=== PATIENT | male | born 1960 | race Caucasian/White ===

== ENCOUNTER 2020-10-21 17:27 | Inpatient (IN) | payer OTHER, SELFPAY ==
[2020-10-21] VITALS (10 sets, daily range): BP systolic 102–181; BP diastolic 59–78; PULSE 95–107; RESP 12–34; TEMP 37.4–39.4; O2SAT 95–100; BMI 44.3
--- NOTE | ~2020-10-21 | XR_ITS ---
XR chest 1V portable DATE: 10/21/2020 18:06 INDICATION: Fever, shortness of breath TECHNIQUE: Portable AP chest on 10/21/2020 at 1809 hours COMPARISON: 03/08/2013 portable AP chest FINDINGS: There is mild patchy infiltrate in the right mid and lower lung zones. The remaining lung f ields appear clear. No pleural effusion or pulmonary vascular congestion or pneumothorax. Heart size appears normal. Aortic arch calcification. Degenerative spurring of the thoracic spine. IMPRESSION: Mild patchy infiltrate in the right mid and lower lung zones Reviewed, dictated and finalized at location A.
--- NOTE | ~2020-10-21 | US_ITS ---
US venous doppler [facility] DATE: 10/21/2020 18:24 INDICATION: Left leg swelling for months TECHNIQUE: Real-time and color flow imaging and Doppler analysis of the veins of the left lower extre mity COMPARISON: None FINDINGS: Left greater saphenous vein is patent. There is spontaneous and phasic flow and normal augm entation and color flow signal and normal compression of the common femoral, femoral, popliteal and p osterior tibial veins. The peroneal veins are not visualized, likely due to body habitus. IMPRESSION: No evidence of deep venous thrombosis of left lower extremity Reviewed, dictated and finalized at Location [facility]. Reviewed, dictated and finalized at location A.
[2020-10-21 18:07] LABS: Basophils Percent Auto 0.3 % (0.2-1.2); Hematocrit 39.4 % (42.0-52.0); Hemoglobin 13.7 g/dL (14.0-18.0); Immature Granulocyte Absolute 0.05 K/mm3 (0.00-0.031); Immature Granulocyte Percent A 0.5 % (0-0.5); Lymphocytes Absolute Auto 0.65 K/mm3 (0.9-3.2); Lymphocytes Percent Auto 6.2 % (18.3-44.2); Mean Corpuscular HGB Conc 34.8 g/dl (32-36); Mean Corpuscular Hemoglobin 31.9 pg (26-34); Mean Corpuscular Volume 91.8 fl (80-100); Mean Platelet Volume 9.6 fl (7.4-10.4); Monocytes Absolute Auto 0.7 K/mm3 (0.1-0.6); Monocytes Percent Auto 6.2 % (2.6-8.5); Neutrophils Absolute Auto 9.1 K/mm3 (1.3-6.7); Neutrophils Percent Auto 86.8 % (45.5-73.1); Platelet Count Result 202 k/mm3 (150-375); Red Blood Count 4.29 M/mm3 (4.6-6.20); Red Cell Distribution Width 14.1 % (11.5-14.5); White Blood Count 10.5 K/mm3 (4.5-10.0)
[2020-10-21 18:16] LABS: Lactic Acid Reflex 1.5 mmol/L (0.7-2.1)
[2020-10-21 18:17] LABS: Alanine Aminotransferase 22 U/L (4-50); Alkaline Phosphatase 50 U/L (38-126); Anion Gap 2 mmol/L (8-16); Aspartate Amino Transferase 36 U/L (17-59); Bilirubin,Total 0.9 mg/dL (0.2-1.3); Blood Urea Nitrogen 11 mg/dL (9-20); Calcium 8.1 mg/dL (8.4-10.2); Carbon Dioxide 31 mmol/L (22-30); Chloride 103 mmol/L (98-107); Estimated CRCL calculation 136 ml/min; Estimated Glomerular Filt Rate > 60; Glucose 181 mg/dL (75-110); Potassium 3.3 mmol/L (3.4-5.0); Sodium 136 mmol/L (137-145)
[2020-10-21 18:19] LABS: D Dimer 0.55 ug/mL (<0.48)
[2020-10-21] MEDS: LACTATED RINGERS 1,000 ML 999 ML IV CONT (18:40)
--- NOTE | 2020-10-21 19:13 | ED.GENADULT ---
HPI - General Adult General Chief complaint: Unspecified Stated complaint: body aches Time Seen by Provider: 10/21/20 17:41 Source: patient and family Mode of arrival: ambulatory Limitations: no limitations History of Present Illness HPI narrative: 60-year-old male History of diabetes, hypertension He has some chronic edema and chronic stasis changes in both lower legs Left leg has recently been worse, with worsening pain, and some weeping from the area for a couple of weeks For the last 2 days it is been much worse and today he has been having fevers No other obvious source, he occasionally has a little bit of a scratchy throat, occasionally coughs a little bit, but none of this is new or different than usual Related Data Home Medications Medication Instructions Recorded Confirmed amlodipine-benazepril cap 10/21/20 blood sugar diagnostic [Accu-Chek 10/21/20 10/21/20 Guide test strips] finasteride mg 10/21/20 fluticasone propionate INTRANASAL 10/21/20 hydrochlorothiazide 10/21/20 10/21/20 insulin detemir U-100 [Levemir unit SUBCUT 10/21/20 FlexTouch U-100 Insuln] insulin lispro [Humalog KwikPen unit SUBCUT 10/21/20 Insulin] metformin mg 10/21/20 metoprolol succinate PO 10/21/20 pen needle, diabetic [BD Lorenza 2nd 10/21/20 10/21/20 Gen Pen Needle] rosuvastatin mg 10/21/20 Allergies Allergy/AdvReac Type Severity Reaction Status Date / Time Penicillins Allergy Unknown Unknown Verified 10/21/20 18:41 Review of Systems Review of Systems: All systems reviewed & are unremarkable except as noted in HPI and below Constitutional: Constitutional: Reports no additional constitutional complaints, Reports body ache(s), Reports chills, Reports fatigue, Reports fever(s) and Denies headache(s) Eyes: Eyes: Reports no additional eye complaints and Denies change in vision ENT: Denies headache(s) and Denies sore throat Cardiovascular: Cardiovascular: Denies chest pain and Denies dyspnea Respiratory: Respiratory: Reports cough and Denies dyspnea Gastrointestinal: Gastrointestinal: Denies abdominal pain, Denies diarrhea and Denies vomiting Genitourinary: Genitourinary: Denies dysuria and Denies urinary frequency Musculoskeletal: Musculoskeletal: Denies deformity, Reports arthralgias, Reports joint swelling, Denies numbness and Reports stiffness Integumentary/Breasts: Skin/Breast: Denies rash and Denies wounds Neurologic: Denies headache(s), Denies focal weakness and Denies numbness Psychiatric: Psychiatric: Reports no additional psychiatric complaints Endocrine: Endocrine: Reports no additional endocrine complaints Hematologic/Lymphatic: Hematologic/Lymphatic: Reports no additional hematologic/lymphatic complaints Allergic/Immunologic: Allergic/Immunologic: Reports no additional allergic/immunologic complaints [facility] Family History Family History (Updated 06/15/15 @ 08:05 by DOCTOR UNKNOWN) Other Cerebrovascular accident Depression Diabetes mellitus Family history of arthritis Family history of blood dyscrasia Family history of cardiovascular disease Family history of congestive heart failure Family history of coronary artery disease Family history of lung disease Family history of malignant melanoma Family history of migraine headaches Family history of obesity Family history of thyroid disease Hypertension Social History Social History Smoking status: Never smoker Alcohol intake: current Exam Const: General: cooperative, no acute distress and alert Nutritional Appearance: overweight HENMT: Head: normal to inspection, normocephalic and atraumatic Ears: external ears normal General nose exam: no epistaxis Eyes: Conjunctivae: conjunctivae normal EOM: EOMs intact bilaterally Neck: Neck: normal visual inspection, supple and no JVD Resp: Effort & Inspection: normal respiratory effort and not labored Auscultation: clear to auscultation bilaterally, n
--- NOTE | 2020-10-21 20:15 | PC.NURSE ---
Pt resting on cart at this time with no complaints or concerns at this time. Pt aware of poc and is requesting more water at this time. Vanco is now infusing and pt noted to be febrile with temp of 102.9 will notify EDMD for orders. Pt vitals are stable. Call button and personal items within reach. Pt advised to press call button for assistance.
[2020-10-21] MEDS: ACETAMINOPHEN 325 MG TABLET 650 MG PO (20:23)
[2020-10-21 20:38] LABS: Add Urine Microscopic? YES; Appearance Urine Clear (Clear); Bilirubin Urine Negative (Negative); Blood Urine 1+ (Negative); Color Urine Yellow (Yellow); Glucose Urine UA Negative (Negative); Ketones Urine 1+ mg/dL (Negative); Leukocyte Esterase Ur Negative LEU/UL (Negative); Nitrate Urine Negative (Negative); Protein Urine 3+ mg/dL (Negative); Specific Grav Ur 1.016 (1.001-1.035); WBC Urine 0-3 /hpf
--- NOTE | 2020-10-21 21:04 | PC.NURSE ---
presented to bedside and provided auto service writer with pt med hx. States pt uses cpap at night and brought in machine. Also states that she does not know pt med list and does not have one on her person; advises that she will call in later with list. Pt resting on cart. Remains febrile with temp 102.8. No complaints or concerns voiced. Advised to press call button for assistance.
--- NOTE | 2020-10-21 21:05 | PC.NURSE ---
Report called to receiving nurse, Eliz, who states room is not clean at this time and will call when bed is ready. Will notify ED charge.
[2020-10-21] MEDS: LACTATED RINGERS 1,000 ML 125 ML IV CONT (21:24)
--- NOTE | 2020-10-21 21:30 | PC.NURSE ---
Called to verify if room 319 has been cleaned and was advised that room was still being cleaned.
--- NOTE | 2020-10-21 22:23 | ADMGEN ---
This patient, Jared Red, was admitted to 3 [facility] Surg Room 319-01. Patient/family oriented to hospital policies and general routines including ID bracelet, bed and alarms, visiting hours, pain management, procedures, bathroom and other care routines, personal items, smoking policy, room service/diet, and visiting hours. Information on how to activate the Rapid Response Team has been discussed. Patient/Family are encouraged to report perceived risks to care and to ask questions if they do not understand what they are told or what they should do.
[2020-10-22] VITALS (7 sets, daily range): BP systolic 137–162; BP diastolic 50–88; PULSE 55–92; RESP 20; TEMP 36.8–38.2; O2SAT 95–100
[2020-10-22] MEDS: ACETAMINOPHEN 325 MG TABLET 650 MG PO ×2 (00:13→05:36)
[2020-10-22] MEDS: POTASSIUM CHLORIDE 20 MEQ TABLET 40 MEQ PO (02:19)
[2020-10-22] MEDS: CALCIUM CARBONATE (TUMS) 500 MG (200 MG ELEMENTAL) PO (04:14)
--- NOTE | 2020-10-22 05:17 | PM.IMHP ---
H&P: HPI History of Present Illness Date/Time: 10/22/20 03:00 Chief Complaint: Body aches, draining wound of left leg Narrative: 60-year-old male with past medical history of hypertension, type 2 diabetes mellitus well controlled, chronic venous stasis dermatitis and prior cellulitis who presented to the ER body aches, fever and draining wound from his left lower extremity. The patient reported the on the evening of the he began having fevers with a T-max of 102.9?. He took some Tylenol without much relief in his symptoms. He had generalized body aches age describes a 8/10 in intensity. He reports that it was the worst aching pain he has ever had in his life. He has reported some mild increase in pain in his left lower extremity. He has not noticed much swelling in his lower extremity but he states that his complains that his left leg is been more swollen. He has had a small amount of drainage from the lateral portion of his left leg. He has had prior episodes of cellulitis due to his chronic venous stasis dermatitis. He does have diabetes but his diabetes is well controlled with his hemoglobin A1cs being around 5.9% for the last 2 or 3 years. He has had decreased appetite since of with some mild nausea. 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 Patient denies any diarrhea or changes in his bowel habits. He has not had any vomiting. He reports frequent headaches with headaches between 3 and 5 days of the week. He reports that his headaches are usually in the back of his neck and in the occiput. He does have obstructive sleep apnea and is compliant with his CPAP. He reports that if he does not wear his CPAP he can only sleep for 20 minutes intervals without waking up. He denies any dysuria, hematuria, or changes in urinary frequency. He reports a chronic mild nonproductive cough and nasal congestion associated with his chronic allergic rhinitis. He has received his 1st dose of COVID-19 vaccine and is due for a 2nd dose next Sunday. Review of Systems Review of Systems: Narrative: 12 systems were reviewed with pertinent positives and negatives per HPI. Except as documented in the HPI, all other systems were reviewed and are negative. [facility] Past Medical History Medical History (Updated 10/22/20 @ 06:59 by Casie Jacobs DO) Allergic rhinitis BPH (benign prostatic hyperplasia) Chronic venous stasis dermatitis of both lower extremities Essential hypertension Hyperlipidemia Insulin dependent diabetes mellitus Multinodular goiter Obstructive sleep apnea on CPAP Surgical History Surgical History (Updated 10/22/20 @ 06:43 by Casie Jacobs DO) History of total right knee replacement (~02/2013) Family History Family History (Updated 10/22/20 @ 06:48 by Casie Jacobs DO) Father , At age 65 Cerebrovascular accident Mother , At age 81 CHF (congestive heart failure) Other Depression Diabetes mellitus Family history of arthritis Family history of blood dyscrasia Family history of cardiovascular disease Family history of coronary artery disease Family history of lung disease Family history of malignant melanoma Family history of migraine headaches Family history of obesity Family history of thyroid disease Hypertension Social History Social History (Updated 10/22/20 @ 06:47 by Casie Jacobs DO) Social History: The patient lives in [place] with his of 36 years. They have 2 daughters age 41 and 36. He works full-time as a cook for [employer]. He briefly smoked for 1 year while he was in college. He usually drinks about once a month but when he does drink he will drink heavily on that day. He denies any illicit substance use. Primary care physician: Dr. Aidan Calix Code status: Full code Surrogate decision maker: Wilman
[2020-10-22] MEDS: LACTATED RINGERS 1,000 ML 125 ML IV CONT ×2 (05:37→16:46)
[2020-10-22] MEDS: KETOROLAC 15 MG/ML VIAL (*BKC) IV PUSH (06:17)
[2020-10-22 06:28] LABS: Hematocrit 37.6 % (42.0-52.0); Hemoglobin 12.8 g/dL (14.0-18.0); Mean Corpuscular Hemoglobin 31.4 pg (26-34); Mean Corpuscular Volume 92.2 fl (80-100); Mean Platelet Volume 10.3 fl (7.4-10.4); Platelet Count Result 165 k/mm3 (150-375); Red Blood Count 4.08 M/mm3 (4.6-6.20); Red Cell Distribution Width 14.2 % (11.5-14.5); White Blood Count 8.2 K/mm3 (4.5-10.0)
[2020-10-22 06:40] LABS: Anion Gap 1 mmol/L (8-16); Blood Urea Nitrogen 8 mg/dL (9-20); Calcium 7.7 mg/dL (8.4-10.2); Carbon Dioxide 31 mmol/L (22-30); Chloride 104 mmol/L (98-107); Estimated CRCL calculation 157 ml/min; Estimated Glomerular Filt Rate > 60; Glucose 226 mg/dL (75-110); Potassium 3.4 mmol/L (3.4-5.0); Sodium 136 mmol/L (137-145)
[2020-10-22] MEDS: metFORMIN HCL 500 MG TABLET 1000 MG PO ×2 (08:12→16:47)
[2020-10-22] MEDS: FINASTERIDE 5 MG TABLET BY MOUTH (08:13)
[2020-10-22] MEDS: FLUTICASONE PROPIONATE 0.05% NA SPR 16 GM BTL (*BKC) 2 SPRAY NASAL (08:13)
[2020-10-22] MEDS: ENOXAPARIN 40 MG/0.4 ML SYRINGE SUB-Q (08:13)
[2020-10-22] MEDS: amLODIPine BESYLATE 5 MG TABLET 10 MG BY MOUTH (08:13)
[2020-10-22] MEDS: hydroCHLOROthiazide 25 MG TABLET PO (08:14)
[2020-10-22] MEDS: lisinopriL 20 MG TABLET 40 MG BY MOUTH (08:14)
[2020-10-22] MEDS: METOPROLOL SUCCINATE EXT REL 100 MG TABCR PO (08:14)
[2020-10-22] MEDS: ROSUVASTATIN 10 MG TABLET PO (08:15)
[2020-10-22] MEDS: INSULIN DETEMIR 100 UNITS/ML 60 UNITS SUB-Q ×2 (08:19→16:48)
[2020-10-22] MEDS: INSULIN ASPART (*BKC) 100 UNITS/ML SUB-Q ×2 (08:19→12:01)
[2020-10-22] MEDS: BETAMETHASONE/CLOTRIMAZOLE CR 15 GM TUBE 1 APPLIC TOPICAL (10:18)
[2020-10-22] MEDS: SILVERGEL (ELTA) 45 ML 1 APPLIC TOPICAL (10:18)
[2020-10-22 11:25] LABS: Glucose Point of Care 279 (65-105)
[2020-10-22] MEDS: POTASSIUM CHLORIDE 20 MEQ TABLET PO (11:58)
[2020-10-22 12:57] LABS: Glucose Point of Care 245 (65-105)
--- NOTE | 2020-10-22 14:06 | PM.IMPN ---
Progress Note: A&P Assessment and Plan (1) Cellulitis of lower leg: Code(s): L03.119 - Cellulitis of unspecified part of limb Status: Acute Assessment and Plan: Patient's symptoms consistent with cellulitis -continue vancomycin and imipenem -ultrasound negative for DVT, D-dimer likely elevated due to infection. No PE symptoms -last fever this morning, await blood cultures -continue to monitor (2) Sepsis: Qualifiers: Sepsis type: sepsis due to unspecified organism Sepsis acute organ dysfunction status: without acute organ dysfunction Qualified Code(s): A41.9 - Sepsis, unspecified organism Code(s): A41.9 - Sepsis, unspecified organism Status: Acute Assessment and Plan: Secondary to above -continue antibiotics and await blood cultures (3) Obstructive sleep apnea on CPAP: Code(s): G47.33 - Obstructive sleep apnea (adult) (pediatric); Z99.89 - Dependence on other enabling machines and devices Status: Acute Assessment and Plan: Continue CPAP (4) Essential hypertension: Code(s): I10 - Essential (primary) hypertension Status: Inactive Assessment and Plan: Last blood pressure 162/50 before home medications -continue metoprolol, amlodipine, and lisinopril (5) Hypokalemia: Code(s): E87.6 - Hypokalemia Status: Acute Assessment and Plan: Low end of normal today -20 mEq given this morning, recheck in the morning Time Spent With Patient Time with patient: 25 - 35 minutes Subjective Date/time seen: 10/22/20 14:06 Interval history: Pt is a 60-year-old male here for cellulitis of the left leg. Patient was seen today and states the pain is little better in the left leg and he no longer has body aches. He says the erythema looks about the same. He is eating and drinking well with no nausea, vomiting, constipation or diarrhea. He further denies chest pain, shortness of breath, cough, congestion, or abdominal pain. He has COVID recovered and was diagnosed COVID-19 back in July and has had his 1st vaccine Review of Systems Review of Systems: All systems reviewed & are unremarkable except as noted in HPI and below Exam Narrative: Exam Narrative: General: Overweight patient resting comfortably in bed eating lunch in no acute distress HEENT: normocephalic Neck: supple Neuro: Alert and oriented x4 CV:RRR Resp:CTA bilaterally. No wheezing or rhonchi Abd: Soft, non distended. No pain to palpation. Positive bowel sounds. Umbilical hernia palpated without incarceration Extremities: Left leg with erythema to the momin and mild purulent drainage. Pulses and sensation intact. No pain or abnormalities to the right leg Objective Data Vital Signs Vital Signs: Vital Signs - 24 hr 10/21/20 17:31 10/21/20 17:43 10/21/20 18:00 Temperature 101 F H Pulse Rate 106 H 106 H 104 H Respiratory Rate 20 22 H 34 H Blood Pressure 102/71 181/78 H Pulse Oximetry 97 100 100 10/21/20 18:15 10/21/20 18:30 10/21/20 18:37 Temperature 102.3 F H Pulse Rate 107 H 98 100 Respiratory Rate 24 H Blood Pressure 165/74 H Pulse Oximetry 98 98 98 10/21/20 20:17 10/21/20 21:03 10/21/20 21:49 Temperature 102.9 F H 102.8 F H 102.8 F H Pulse Rate 101 H 97 Respiratory Rate 12 30 H Blood Pressure 178/67 H 154/59 H Pulse Oximetry 97 95 10/21/20 22:20 10/22/20 00:00 10/22/20 03:40 Temperature 99.4 F 99.7 F H Pulse Rate 95 87 Respiratory Rate 22 H Blood Pressure 153/61 H Pulse Oximetry 96 95 10/22/20 05:46 10/22/20 08:14 Temperature 100.7 F H Pulse Rate 92 68 Respiratory Rate 20 Blood Pressure 162/50 H Pulse Oximetry 100 Intake/Output Intake/Output: Intake & Output 10/19/20 10/20/20 10/21/20 10/22/20 23:59 23:59 23:59 23:59 Intake Total 1100 2300 Output Total 2200 Balance 1100 100 Meds/Results Medications: Active Medications Generic Name Dose Ro
[2020-10-22 17:24] LABS: Glucose Point of Care 175 (65-105)
[2020-10-22 20:38] LABS: Glucose Point of Care 132 (65-105)
[2020-10-23] VITALS (8 sets, daily range): BP systolic 139–141; BP diastolic 51–60; PULSE 45–73; RESP 16–20; TEMP 36.6; O2SAT 94–99
[2020-10-23] MEDS: LACTATED RINGERS 1,000 ML 125 ML IV CONT (04:29)
[2020-10-23 06:52] LABS: Basophils Percent Auto 0.6 % (0.2-1.2); Eosinophils Absolute Auto 0.1 K/mm3 (0-0.3); Eosinophils Percent Auto 1.1 % (0-4.4); Hematocrit 35.2 % (42.0-52.0); Immature Granulocyte Absolute 0.02 K/mm3 (0.00-0.031); Immature Granulocyte Percent A 0.3 % (0-0.5); Lymphocytes Absolute Auto 1.18 K/mm3 (0.9-3.2); Lymphocytes Percent Auto 19.1 % (18.3-44.2); Mean Corpuscular HGB Conc 34.1 g/dl (32-36); Mean Corpuscular Hemoglobin 31.9 pg (26-34); Mean Corpuscular Volume 93.6 fl (80-100); Mean Platelet Volume 10.2 fl (7.4-10.4); Monocytes Absolute Auto 0.7 K/mm3 (0.1-0.6); Neutrophils Absolute Auto 4.1 K/mm3 (1.3-6.7); Neutrophils Percent Auto 66.9 % (45.5-73.1); Platelet Count Result 161 k/mm3 (150-375); Red Blood Count 3.76 M/mm3 (4.6-6.20); Red Cell Distribution Width 14.1 % (11.5-14.5); White Blood Count 6.2 K/mm3 (4.5-10.0)
[2020-10-23 07:02] LABS: Potassium 3.1 mmol/L (3.4-5.0)
[2020-10-23 07:11] LABS: Anion Gap 1 mmol/L (8-16); Blood Urea Nitrogen 9 mg/dL (9-20); Carbon Dioxide 31 mmol/L (22-30); Chloride 103 mmol/L (98-107); Estimated CRCL calculation 157 ml/min; Estimated Glomerular Filt Rate > 60; Glucose 88 mg/dL (75-110); Sodium 135 mmol/L (137-145)
[2020-10-23 07:22] LABS: CRP 15.2 mg/dL (<1.0)
[2020-10-23 07:35] LABS: Vancomycin Trough 7.8 ug/mL (10.0-20.0)
[2020-10-23 07:38] LABS: Glucose Point of Care 82 (65-105)
[2020-10-23] MEDS: metFORMIN HCL 500 MG TABLET 1000 MG PO ×2 (08:57→16:49)
[2020-10-23] MEDS: INSULIN DETEMIR 100 UNITS/ML 60 UNITS SUB-Q (08:57)
[2020-10-23] MEDS: lisinopriL 20 MG TABLET 40 MG BY MOUTH (08:59)
[2020-10-23] MEDS: ENOXAPARIN 40 MG/0.4 ML SYRINGE SUB-Q (08:59)
[2020-10-23] MEDS: FINASTERIDE 5 MG TABLET BY MOUTH (09:00)
[2020-10-23] MEDS: BETAMETHASONE/CLOTRIMAZOLE CR 15 GM TUBE 1 APPLIC TOPICAL (09:00)
[2020-10-23] MEDS: FLUTICASONE PROPIONATE 0.05% NA SPR 16 GM BTL (*BKC) 2 SPRAY NASAL (09:00)
[2020-10-23] MEDS: SILVERGEL (ELTA) 45 ML 1 APPLIC TOPICAL (09:00)
[2020-10-23] MEDS: hydroCHLOROthiazide 25 MG TABLET PO (09:00)
[2020-10-23] MEDS: ROSUVASTATIN 10 MG TABLET PO (09:00)
[2020-10-23] MEDS: POTASSIUM CHLORIDE 20 MEQ TABLET 40 MEQ PO (10:48)
[2020-10-23] MEDS: amLODIPine BESYLATE 5 MG TABLET 10 MG BY MOUTH (10:48)
[2020-10-23] MEDS: TAMSULOSIN HCL 0.4 MG CAPSULE PO (10:49)
--- NOTE | 2020-10-23 12:18 | PM.IMPN ---
Progress Note: A&P Assessment and Plan (1) Cellulitis of lower leg: Code(s): L03.119 - Cellulitis of unspecified part of limb Status: Acute Assessment and Plan: Patient's symptoms consistent with cellulitis -continue vancomycin and imipenem -ultrasound negative for DVT, D-dimer likely elevated due to infection. No PE symptoms -last fever 16, blood cultures have no growth to date -will elevate the leg and apply Garo wraps. Patient usually wears his compression stockings daily. -continue to monitor (2) Sepsis: Qualifiers: Sepsis type: sepsis due to unspecified organism Sepsis acute organ dysfunction status: without acute organ dysfunction Qualified Code(s): A41.9 - Sepsis, unspecified organism Code(s): A41.9 - Sepsis, unspecified organism Status: Acute Assessment and Plan: Secondary to above -continue antibiotics -blood cultures have no growth to date (3) Obstructive sleep apnea on CPAP: Code(s): G47.33 - Obstructive sleep apnea (adult) (pediatric); Z99.89 - Dependence on other enabling machines and devices Status: Acute Assessment and Plan: Continue CPAP (4) Essential hypertension: Code(s): I10 - Essential (primary) hypertension Status: Inactive Assessment and Plan: Last blood pressure 140/60 -continue amlodipine and lisinopril -hold metoprolol due to bradycardia (5) Hypokalemia: Code(s): E87.6 - Hypokalemia Status: Acute Assessment and Plan: Replaced (6) Bradycardia: Code(s): R00.1 - Bradycardia, unspecified Status: Acute Assessment and Plan: Patient unsure if he has a history of bradycardia -completely asymptomatic -metoprolol held today -will order telemetry -this could be his baseline and he was just slightly higher due to infection on admission -obtain EKG Subjective Date/time seen: 10/23/20 12:18 Interval history: Pt is a 60-year-old male here for cellulitis of the left leg. Patient was seen today with at bedside. He states his body aches were better yesterday but overnight and today they seem to be a little worse. He also thinks his left leg is little bit more swollen. He has been mostly in bed but just started sitting in the chair prior to me coming in. He said he did not eat dinner last night and he is not surprised that his glucose was low. He is going to let us know next time he decides not to eat. He were CPAP overnight. He denies shortness of breath, chest pain, nausea, vomiting, or abdominal pain. Exam Narrative: Exam Narrative: General: Overweight patient resting comfortably in bed eating lunch in no acute distress HEENT: normocephalic Neck: supple Neuro: Alert and oriented x4 CV: Bradycardic Resp:CTA bilaterally. No wheezing or rhonchi Abd: Soft, non distended. No pain to palpation. Positive bowel sounds. Umbilical hernia palpated without incarceration Extremities: Left leg with erythema to the momin and mild purulent drainage with 1+ pitting edema. Pulses and sensation intact. No pain or abnormalities to the right leg Objective Data Vital Signs Vital Signs: Vital Signs - 24 hr 10/22/20 14:00 10/22/20 21:02 10/22/20 21:25 Temperature 98.3 F 98.6 F Pulse Rate 55 L 90 82 Respiratory Rate 20 20 Blood Pressure 137/50 L 152/88 H Pulse Oximetry 98 95 95 10/23/20 02:02 10/23/20 05:00 10/23/20 08:59 Temperature 98 F Pulse Rate 70 45 L 46 L Respiratory Rate 16 Blood Pressure 140/60 Pulse Oximetry 94 96 Intake/Output Intake/Output: Intake & Output 10/20/20 10/21/20 10/22/20 10/23/20 23:59 23:59 23:59 23:59 Intake Total 1100 4705 1590 Output Total 2200 Balance 1100 2505 1590 Meds/Results Medications: Active Medications Generic Name Dose Route Start Last Admin Trade Name Jobyq PRN Reason Stop Dose Admin Acetaminophen 650 mg 10/21/20 19:09 10/22/20 05:36 Acetaminophen
--- NOTE | 2020-10-23 12:22 | ECG_ITS ---
Measurements Intervals [place] Rate: 66 P: 49 RI: 160 QRS: -57 QRSD: 127 T: 9 QT: 448 QTc: 470 Interpretive Statements SINUS RHYTHM RIGHT BUNDLE BRANCH BLOCK BASELINE ARTIFACT- I, II, AVR, AVF ABNORMAL ECG Electronically Signed On 10-23-2020 17:44:37 CDT by Alan Faulkner D.O.
[2020-10-23 12:38] LABS: Glucose Point of Care 140 (65-105)
[2020-10-23] MEDS: INSULIN DETEMIR 100 UNITS/ML 50 UNITS SUB-Q (21:06)
[2020-10-23 21:18] LABS: Glucose Point of Care 166 (65-105)
[2020-10-24] VITALS (10 sets, daily range): BP systolic 121–159; BP diastolic 58–71; PULSE 67–86; RESP 16–18; TEMP 36.3–36.7; O2SAT 94–99
[2020-10-24 06:23] LABS: Basophils Percent Auto 0.5 % (0.2-1.2); Eosinophils Absolute Auto 0.1 K/mm3 (0-0.3); Eosinophils Percent Auto 2.3 % (0-4.4); Hematocrit 35.2 % (42.0-52.0); Hemoglobin 12.2 g/dL (14.0-18.0); Immature Granulocyte Absolute 0.01 K/mm3 (0.00-0.031); Immature Granulocyte Percent A 0.2 % (0-0.5); Lymphocytes Absolute Auto 1.02 K/mm3 (0.9-3.2); Lymphocytes Percent Auto 23.2 % (18.3-44.2); Mean Corpuscular HGB Conc 34.7 g/dl (32-36); Mean Corpuscular Volume 92.4 fl (80-100); Mean Platelet Volume 10.3 fl (7.4-10.4); Monocytes Absolute Auto 0.5 K/mm3 (0.1-0.6); Monocytes Percent Auto 10.2 % (2.6-8.5); Neutrophils Absolute Auto 2.8 K/mm3 (1.3-6.7); Neutrophils Percent Auto 63.6 % (45.5-73.1); Platelet Count Result 168 k/mm3 (150-375); Red Blood Count 3.81 M/mm3 (4.6-6.20); Red Cell Distribution Width 13.8 % (11.5-14.5); White Blood Count 4.4 K/mm3 (4.5-10.0)
[2020-10-24 06:42] LABS: Anion Gap 5 mmol/L (8-16); Blood Urea Nitrogen 8 mg/dL (9-20); CRP 7.5 mg/dL (<1.0); Carbon Dioxide 29 mmol/L (22-30); Chloride 104 mmol/L (98-107); Estimated CRCL calculation 185 ml/min; Estimated Glomerular Filt Rate > 60; Glucose 97 mg/dL (75-110); Potassium 3.1 mmol/L (3.4-5.0); Sodium 138 mmol/L (137-145)
[2020-10-24] MEDS: INSULIN DETEMIR 100 UNITS/ML 50 UNITS SUB-Q (07:54)
[2020-10-24 07:56] LABS: Glucose Point of Care 76 (65-105)
[2020-10-24] MEDS: ENOXAPARIN 40 MG/0.4 ML SYRINGE SUB-Q (08:01)
[2020-10-24] MEDS: FLUTICASONE PROPIONATE 0.05% NA SPR 16 GM BTL (*BKC) 2 SPRAY NASAL (08:01)
[2020-10-24] MEDS: metFORMIN HCL 500 MG TABLET 1000 MG PO ×2 (08:01→17:12)
[2020-10-24] MEDS: amLODIPine BESYLATE 5 MG TABLET 10 MG BY MOUTH (08:02)
[2020-10-24] MEDS: ROSUVASTATIN 10 MG TABLET PO (08:02)
[2020-10-24] MEDS: hydroCHLOROthiazide 25 MG TABLET PO (08:02)
[2020-10-24] MEDS: lisinopriL 20 MG TABLET 40 MG BY MOUTH (08:02)
[2020-10-24] MEDS: FINASTERIDE 5 MG TABLET BY MOUTH (08:02)
[2020-10-24] MEDS: TAMSULOSIN HCL 0.4 MG CAPSULE PO (08:02)
[2020-10-24] MEDS: SILVERGEL (ELTA) 45 ML 1 APPLIC TOPICAL (08:03)
[2020-10-24] MEDS: BETAMETHASONE/CLOTRIMAZOLE CR 15 GM TUBE 1 APPLIC TOPICAL (08:03)
[2020-10-24] MEDS: POTASSIUM CHLORIDE 20 MEQ TABLET 40 MEQ PO (08:27)
[2020-10-24 11:38] LABS: Glucose Point of Care 119 (65-105)
--- NOTE | 2020-10-24 14:58 | PM.IMPN ---
Progress Note: A&P Assessment and Plan (1) Cellulitis of lower leg: Code(s): L03.119 - Cellulitis of unspecified part of limb Status: Acute Assessment and Plan: Patient's symptoms consistent with cellulitis -continue vancomycin and imipenem -ultrasound negative for DVT, D-dimer likely elevated due to infection. No PE symptoms -last fever 10/22, blood cultures have no growth to date -continue elevation of the leg and apply Garo wraps. Patient usually wears his compression stockings daily. -CRP improving -will give Lasix 20 mg x 1 to help with swelling -continue to monitor (2) Sepsis: Qualifiers: Sepsis type: sepsis due to unspecified organism Sepsis acute organ dysfunction status: without acute organ dysfunction Qualified Code(s): A41.9 - Sepsis, unspecified organism Code(s): A41.9 - Sepsis, unspecified organism Status: Acute Assessment and Plan: Secondary to above -continue antibiotics -blood cultures have no growth to date (3) Obstructive sleep apnea on CPAP: Code(s): G47.33 - Obstructive sleep apnea (adult) (pediatric); Z99.89 - Dependence on other enabling machines and devices Status: Acute Assessment and Plan: Continue CPAP (4) Essential hypertension: Code(s): I10 - Essential (primary) hypertension Status: Inactive Assessment and Plan: Last blood pressure 121/71 -continue amlodipine and lisinopril -will restart metoprolol at a lower dose (5) Hypokalemia: Code(s): E87.6 - Hypokalemia Status: Acute Assessment and Plan: Replaced -check magnesium (6) Bradycardia: Code(s): R00.1 - Bradycardia, unspecified Status: Acute Assessment and Plan: Patient unsure if he has a history of bradycardia -completely asymptomatic -metoprolol held today and patient is having PVCs -will restart tomorrow morning at a lower dose -telemetry shows normal sinus rhythm with occasional PVCs -this could be his baseline and he was just slightly higher due to infection on admission Subjective Date/time seen: 10/24/20 14:58 Interval history: Pt is a 60-year-old male here for cellulitis of the left leg. Patient was seen today with at bedside. Patient states that he has occasional body aches but is feeling much better compared to admission. He states he thinks the leg improving with less erythema and swelling although it looks shriveled up now. He has been elevating the leg with the recliner. The pain has improved as well as the purulent discharge. He ate a good dinner last night but had a low appetite this morning. He denies nausea, vomiting, fevers, chest pain shortness of breath or abdominal pain. at bedside and plan reviewed. Exam Narrative: Exam Narrative: General: Overweight patient resting comfortably in the chair in no acute distress HEENT: normocephalic Neck: supple Neuro: Alert and oriented x4 CV: Regular. Telemetry shows occasional PVCs with a triplet. Normal sinus rhythm 75 Resp:CTA bilaterally. No wheezing or rhonchi Abd: Soft, non distended. No pain to palpation. Positive bowel sounds. Umbilical hernia palpated without incarceration Extremities: Left leg with improved erythema and discharge. He still has 1+ swelling to the mid momin all the way down. Pulses and sensation intact. No pain or abnormalities to the right leg Objective Data Vital Signs Vital Signs: Vital Signs - 24 hr 10/23/20 16:00 10/23/20 20:00 10/23/20 22:00 Temperature 97.8 F Pulse Rate 68 66 69 Respiratory Rate 18 20 Blood Pressure 139/57 L Pulse Oximetry 99 98 10/23/20 22:55 10/24/20 00:00 10/24/20 02:45 Temperature Pulse Rate 73 67 70 Respiratory Rate Blood Pressure Pulse Oximetry 95 94 10/24/20 04:00 10/24/20 06:00 10/24/20 12:00 Temperature 98.1 F Pulse Rate 70 72 77 Respiratory Rate 18 Blood Pressure 139/64 Pulse Oximetry 94
[2020-10-24] MEDS: FUROSEMIDE INJ 40 MG/4 ML VIAL 20 MG IV PUSH (15:10)
[2020-10-24 15:23] LABS: Magnesium 1.8 mg/dL (1.6-2.3)
[2020-10-24 16:31] LABS: Glucose Point of Care 129 (65-105)
[2020-10-24 16:50] LABS: Vancomycin Trough 13.1 ug/mL (10.0-20.0)
[2020-10-24] MEDS: POTASSIUM CHLORIDE 20 MEQ TABLET PO (17:22)
[2020-10-24] MEDS: guaiFENesin 12 HR 600 MG TABCR PO (21:23)
[2020-10-24] MEDS: INSULIN DETEMIR 100 UNITS/ML 40 UNITS SUB-Q (21:23)
[2020-10-24 22:18] LABS: Glucose Point of Care 194 (65-105)
[2020-10-25] VITALS (9 sets, daily range): BP systolic 150–154; BP diastolic 52–65; PULSE 66–98; RESP 18; TEMP 36.4–36.6; O2SAT 95–100
[2020-10-25 07:01] LABS: Anion Gap 2 mmol/L (8-16); Blood Urea Nitrogen 7 mg/dL (9-20); CRP 4.9 mg/dL (<1.0); Calcium 8.2 mg/dL (8.4-10.2); Carbon Dioxide 31 mmol/L (22-30); Chloride 102 mmol/L (98-107); Estimated CRCL calculation 157 ml/min; Estimated Glomerular Filt Rate > 60; Glucose 156 mg/dL (75-110); Magnesium 1.6 mg/dL (1.6-2.3); Potassium 3.1 mmol/L (3.4-5.0); Sodium 135 mmol/L (137-145)
[2020-10-25 07:09] LABS: Hematocrit 32.9 % (42.0-52.0); Hemoglobin 11.4 g/dL (14.0-18.0); Mean Corpuscular HGB Conc 34.7 g/dl (32-36); Mean Corpuscular Hemoglobin 31.8 pg (26-34); Mean Corpuscular Volume 91.6 fl (80-100); Mean Platelet Volume 10.3 fl (7.4-10.4); Platelet Count Result 200 k/mm3 (150-375); Red Blood Count 3.59 M/mm3 (4.6-6.20); Red Cell Distribution Width 13.5 % (11.5-14.5); White Blood Count 4.6 K/mm3 (4.5-10.0)
[2020-10-25 07:51] LABS: Glucose Point of Care 125 (65-105)
[2020-10-25] MEDS: amLODIPine BESYLATE 5 MG TABLET 10 MG BY MOUTH (08:12)
[2020-10-25] MEDS: ENOXAPARIN 40 MG/0.4 ML SYRINGE SUB-Q (08:12)
[2020-10-25] MEDS: FLUTICASONE PROPIONATE 0.05% NA SPR 16 GM BTL (*BKC) 2 SPRAY NASAL (08:12)
[2020-10-25] MEDS: FINASTERIDE 5 MG TABLET BY MOUTH (08:12)
[2020-10-25] MEDS: MAGNESIUM OXIDE 400 MG TABLET PO (08:12)
[2020-10-25] MEDS: TAMSULOSIN HCL 0.4 MG CAPSULE PO (08:13)
[2020-10-25] MEDS: METOPROLOL SUCCINATE EXT REL 25 MG, METOPROLOL SUCCINATE EXT REL 50 MG 75 MG PO (08:13)
[2020-10-25] MEDS: SILVERGEL (ELTA) 45 ML 1 APPLIC TOPICAL (08:13)
[2020-10-25] MEDS: hydroCHLOROthiazide 25 MG TABLET PO (08:13)
[2020-10-25] MEDS: lisinopriL 20 MG TABLET 40 MG BY MOUTH (08:13)
[2020-10-25] MEDS: guaiFENesin 12 HR 600 MG TABCR PO ×2 (08:13→20:37)
[2020-10-25] MEDS: ROSUVASTATIN 10 MG TABLET PO (08:13)
[2020-10-25] MEDS: metFORMIN HCL 500 MG TABLET 1000 MG PO ×2 (08:13→17:19)
[2020-10-25] MEDS: BETAMETHASONE/CLOTRIMAZOLE CR 15 GM TUBE 1 APPLIC TOPICAL (08:15)
[2020-10-25] MEDS: INSULIN DETEMIR 100 UNITS/ML 40 UNITS SUB-Q ×2 (08:19→20:37)
[2020-10-25 11:43] LABS: Glucose Point of Care 174 (65-105)
--- NOTE | 2020-10-25 12:43 | PM.IMPN ---
Progress Note: A&P Assessment and Plan (1) Cellulitis of lower leg: Code(s): L03.119 - Cellulitis of unspecified part of limb Status: Acute Assessment and Plan: Patient's symptoms consistent with cellulitis -continue vancomycin and imipenem -ultrasound negative for DVT, D-dimer likely elevated due to infection. No PE symptoms -last fever 10/22, blood cultures have no growth to date -continue elevation of the leg Patient usually wears his compression stockings daily. -CRP improving -lasix 20mg given 10/24/20, no further needed at this time -I have asked wound care to see the patient again to ensure it is healing and no further adjustments need to be made. -hopefully discharge in 1-2 days (2) Sepsis: Qualifiers: Sepsis type: sepsis due to unspecified organism Sepsis acute organ dysfunction status: without acute organ dysfunction Qualified Code(s): A41.9 - Sepsis, unspecified organism Code(s): A41.9 - Sepsis, unspecified organism Status: Acute Assessment and Plan: Secondary to above -continue antibiotics -blood cultures have no growth to date (3) Obstructive sleep apnea on CPAP: Code(s): G47.33 - Obstructive sleep apnea (adult) (pediatric); Z99.89 - Dependence on other enabling machines and devices Status: Acute Assessment and Plan: Continue CPAP (4) Essential hypertension: Code(s): I10 - Essential (primary) hypertension Status: Inactive Assessment and Plan: Last blood pressure 150/58 -continue amlodipine and lisinopril -Continue metoprolol at a lower dose (5) Hypokalemia: Code(s): E87.6 - Hypokalemia Status: Acute Assessment and Plan: Replaced -worse with lasix -reassess tomorrow (6) Bradycardia: Code(s): R00.1 - Bradycardia, unspecified Status: Acute Assessment and Plan: Patient unsure if he has a history of bradycardia -completely asymptomatic -metoprolol was previously held but pt was having PVC (no cp) -continue metoprolol at lower dose and monitor HR -telemetry shows normal sinus rhythm with occasional PVCs Subjective Date/time seen: 10/25/20 12:43 Interval history: Pt is a 60-year-old male here for cellulitis of the left leg. Patient was seen today and is doing better. He states his swelling has improved and his erythema is about the same. He is no longer having body aches or night sweats. The drainage to the wound has improved. He has been elevating the leg with the recliner. His appetitie is better. He denies nausea, vomiting, fevers, chest pain shortness of breath or abdominal pain. Exam Narrative: Exam Narrative: General: Overweight patient resting comfortably in the chair in no acute distress HEENT: normocephalic Neck: supple Neuro: Alert and oriented x4 CV: RRR. Telemetry shows NSVT for 1.4 seconds with occasional PVC Resp:CTA bilaterally. No wheezing or rhonchi Abd: Soft, non distended. No pain to palpation. Positive bowel sounds. Umbilical hernia palpated without incarceration Extremities: Left leg with improved erythema and discharge. He has trace swelling to the mid momin down to the foot. Pulses and sensation intact. No pain or abnormalities to the right leg Objective Data Vital Signs Vital Signs: Vital Signs - 24 hr 10/24/20 14:00 10/24/20 16:00 10/24/20 20:00 Temperature 98.0 F Pulse Rate 76 86 76 Respiratory Rate 16 Blood Pressure 121/71 Pulse Oximetry 99 10/24/20 21:36 10/24/20 22:31 10/25/20 00:00 Temperature 97.4 F L Pulse Rate 82 77 98 Respiratory Rate 18 Blood Pressure 159/58 H Pulse Oximetry 99 95 10/25/20 02:16 10/25/20 04:00 10/25/20 06:00 Temperature 97.7 F Pulse Rate 69 68 71 Respiratory Rate 18 Blood Pressure 150/58 H Pulse Oximetry 95 99 10/25/20 08:00 10/25/20 08:13 Temperature Pulse Rate 90 74 Respiratory Rate Blood Pressure Pulse Oximetry
[2020-10-25 16:36] LABS: Vancomycin Trough 23.9 ug/mL (10.0-20.0)
[2020-10-25 16:51] LABS: Glucose Point of Care 143 (65-105)
[2020-10-25 20:49] LABS: Glucose Point of Care 155 (65-105)
[2020-10-26] VITALS (7 sets, daily range): BP systolic 145–152; BP diastolic 56–62; PULSE 63–68; RESP 18; TEMP 36.6–36.8; O2SAT 96–99
[2020-10-26 05:56] LABS: Basophils Absolute Auto 0.1 K/mm3 (0.0-0.1); Basophils Percent Auto 0.9 % (0.2-1.2); Eosinophils Absolute Auto 0.2 K/mm3 (0-0.3); Eosinophils Percent Auto 3.9 % (0-4.4); Hematocrit 36.4 % (42.0-52.0); Hemoglobin 12.6 g/dL (14.0-18.0); Immature Granulocyte Absolute 0.02 K/mm3 (0.00-0.031); Immature Granulocyte Percent A 0.4 % (0-0.5); Lymphocytes Absolute Auto 1.08 K/mm3 (0.9-3.2); Lymphocytes Percent Auto 18.9 % (18.3-44.2); Mean Corpuscular HGB Conc 34.6 g/dl (32-36); Mean Corpuscular Hemoglobin 32.2 pg (26-34); Mean Corpuscular Volume 93.1 fl (80-100); Mean Platelet Volume 9.7 fl (7.4-10.4); Monocytes Absolute Auto 0.5 K/mm3 (0.1-0.6); Monocytes Percent Auto 9.3 % (2.6-8.5); Neutrophils Absolute Auto 3.8 K/mm3 (1.3-6.7); Neutrophils Percent Auto 66.6 % (45.5-73.1); Platelet Count Result 223 k/mm3 (150-375); Red Blood Count 3.91 M/mm3 (4.6-6.20); Red Cell Distribution Width 13.7 % (11.5-14.5); White Blood Count 5.7 K/mm3 (4.5-10.0)
[2020-10-26 06:28] LABS: Anion Gap 3 mmol/L (8-16); Blood Urea Nitrogen 9 mg/dL (9-20); CRP 3.3 mg/dL (<1.0); Calcium 8.7 mg/dL (8.4-10.2); Carbon Dioxide 34 mmol/L (22-30); Chloride 102 mmol/L (98-107); Estimated CRCL calculation 157 ml/min; Estimated Glomerular Filt Rate > 60; Glucose 139 mg/dL (75-110); Magnesium 1.7 mg/dL (1.6-2.3); Potassium 3.3 mmol/L (3.4-5.0); Sodium 139 mmol/L (137-145)
[2020-10-26 07:50] LABS: Glucose Point of Care 134 (65-105)
[2020-10-26] MEDS: METOPROLOL SUCCINATE EXT REL 25 MG, METOPROLOL SUCCINATE EXT REL 50 MG 75 MG PO (08:58)
[2020-10-26] MEDS: amLODIPine BESYLATE 5 MG TABLET 10 MG BY MOUTH (08:58)
[2020-10-26] MEDS: FINASTERIDE 5 MG TABLET BY MOUTH (08:59)
[2020-10-26] MEDS: ROSUVASTATIN 10 MG TABLET PO (08:59)
[2020-10-26] MEDS: MAGNESIUM OXIDE 400 MG TABLET PO (08:59)
[2020-10-26] MEDS: TAMSULOSIN HCL 0.4 MG CAPSULE PO (08:59)
[2020-10-26] MEDS: metFORMIN HCL 500 MG TABLET 1000 MG PO ×2 (09:00→15:53)
[2020-10-26] MEDS: BETAMETHASONE/CLOTRIMAZOLE CR 15 GM TUBE 1 APPLIC TOPICAL (09:01)
[2020-10-26] MEDS: lisinopriL 20 MG TABLET 40 MG BY MOUTH (09:01)
[2020-10-26] MEDS: guaiFENesin 12 HR 600 MG TABCR PO ×2 (09:01→20:58)
[2020-10-26] MEDS: hydroCHLOROthiazide 25 MG TABLET PO (09:01)
[2020-10-26] MEDS: ENOXAPARIN 40 MG/0.4 ML SYRINGE SUB-Q (09:01)
[2020-10-26] MEDS: FLUTICASONE PROPIONATE 0.05% NA SPR 16 GM BTL (*BKC) 2 SPRAY NASAL (09:02)
[2020-10-26] MEDS: INSULIN DETEMIR 100 UNITS/ML 40 UNITS SUB-Q ×2 (09:24→20:58)
[2020-10-26] MEDS: POTASSIUM CHLORIDE 20 MEQ TABLET 40 MEQ PO (10:07)
[2020-10-26] MEDS: SILVERGEL (ELTA) 45 ML 1 APPLIC TOPICAL (10:22)
--- NOTE | 2020-10-26 10:23 | PM.IMPN ---
Progress Note: A&P Assessment and Plan (1) Cellulitis of lower leg: Code(s): L03.119 - Cellulitis of unspecified part of limb Status: Acute Assessment and Plan: Patient's history and physical exam consistent with left leg cellulitis. Ultrasound shows no evidence of left leg DVT. Continue vancomycin and imipenem (day 5). Continue elevation of the leg and local wound care including ISMAEL wrap. He usually wears his compression stockings daily. Improving. Anticipate possible discharge tomorrow. (2) Sepsis: Qualifiers: Sepsis type: sepsis due to unspecified organism Sepsis acute organ dysfunction status: without acute organ dysfunction Qualified Code(s): A41.9 - Sepsis, unspecified organism Code(s): A41.9 - Sepsis, unspecified organism Status: Acute Assessment and Plan: Secondary to above. Continue antibiotics. Blood cultures pending with no growth to date. (3) Obstructive sleep apnea on CPAP: Code(s): G47.33 - Obstructive sleep apnea (adult) (pediatric); Z99.89 - Dependence on other enabling machines and devices Status: Chronic Assessment and Plan: Continue CPAP (4) Essential hypertension: Code(s): I10 - Essential (primary) hypertension Status: Inactive Assessment and Plan: Blood pressures reviewed; last 152/56. Continue home amlodipine and lisinopril. Continue metoprolol (dose was decreased due to bradycardia). (5) Hypokalemia: Code(s): E87.6 - Hypokalemia Status: Acute Assessment and Plan: K 3.3 and replaced. Mag 1.7, continue oral supplementation. Monitor labs in AM. (6) Bradycardia: Code(s): R00.1 - Bradycardia, unspecified Status: Acute Assessment and Plan: Patient unsure if he has a history of bradycardia. Completely asymptomatic Continue metoprolol at lower dose and monitor HR Subjective Date/time seen: 10/26/20 10:00 Interval history: Mr. Red is a 60yo M admitted for left leg cellulitis. He is feeling better and notes his swelling has improved, feels the redness is improving also. Denies body aches or night sweats. Wound no longer draining. Appetite is good and he denies nausea, vomiting, abdominal pain, chest pain or shortness of breath. He notes a cough that is chronic which he takes mucinex for. Review of Systems Review of Systems: All systems reviewed & are unremarkable except as noted in HPI and below Exam Narrative: Exam Narrative: General: Male resting comfortably sitting up in bed in no acute distress. HEENT: normocephalic, EOMI, oral mucosa moist. Neck: supple Neuro: Alert and oriented x4 CV: Rate and rhythm are regular. Resp: Lungs clear to auscultation TOM. Respirations even and nonlabored. Tolerating room air. Abd: Soft, nontender, nondistended. Positive bowel sounds. Umbilical hernia palpated without pain. Extremities: Left leg with improved erythema and edema. He has trace swelling to the mid momin down to the foot. Pulses and sensation intact. No pain or abnormalities to the right leg. Objective Data Vital Signs Vital Signs: Last Vital Signs Temp 97.8 F 10/26/20 05:44 Pulse 65 10/26/20 08:58 Resp 18 10/26/20 08:00 BP 152/56 H 10/26/20 05:44 Pulse Ox 99 10/26/20 08:00 Intake/Output Intake/Output: Intake & Output 10/23/20 10/24/20 10/25/20 10/26/20 23:59 23:59 23:59 23:59 Intake Total 3870 3690 3910 2430 Output Total 700 1750 Balance 3170 1940 3910 2430 Meds/Results Medications: Active Medications Generic Name Dose Route Start Last Admin Trade Name Freq PRN Reason Stop Dose Admin Acetaminophen 650 mg 10/21/20 19:09 10/22/20 05:36 Acetaminophen 325 Mg Tablet PO 65
[2020-10-26 11:43] LABS: Glucose Point of Care 200 (65-105)
[2020-10-26 17:11] LABS: Glucose Point of Care 165 (65-105)
[2020-10-26] MEDS: guaiFENesin/DEXTROMETHORPHAN 10 ML UDC 5 ML PO (18:06)
[2020-10-26 22:52] LABS: Glucose Point of Care 203 (65-105)
[2020-10-27 05:38] VITALS: BP 152/67; PULSE 63; RESP 20; TEMP 36.9; O2SAT 100
[2020-10-27 06:41] LABS: Anion Gap 3 mmol/L (8-16); Blood Urea Nitrogen 9 mg/dL (9-20); Calcium 8.3 mg/dL (8.4-10.2); Carbon Dioxide 33 mmol/L (22-30); Chloride 101 mmol/L (98-107); Estimated CRCL calculation 185 ml/min; Estimated Glomerular Filt Rate > 60; Glucose 180 mg/dL (75-110); Magnesium 1.7 mg/dL (1.6-2.3); Potassium 3.3 mmol/L (3.4-5.0); Sodium 137 mmol/L (137-145)
[2020-10-27 07:49] LABS: Glucose Point of Care 147 (65-105)
[2020-10-27] MEDS: POTASSIUM CHLORIDE 20 MEQ TABLET 60 MEQ PO (08:52)
[2020-10-27] MEDS: amLODIPine BESYLATE 5 MG TABLET 10 MG BY MOUTH (08:53)
[2020-10-27] MEDS: metFORMIN HCL 500 MG TABLET 1000 MG PO (08:53)
[2020-10-27 08:59] VITALS: PULSE 76
[2020-10-27] MEDS: guaiFENesin 12 HR 600 MG TABCR PO (08:59)
[2020-10-27] MEDS: MAGNESIUM OXIDE 400 MG TABLET PO (08:59)
[2020-10-27] MEDS: METOPROLOL SUCCINATE EXT REL 25 MG, METOPROLOL SUCCINATE EXT REL 50 MG 75 MG PO (08:59)
[2020-10-27] MEDS: TAMSULOSIN HCL 0.4 MG CAPSULE PO (08:59)
[2020-10-27] MEDS: lisinopriL 20 MG TABLET 40 MG BY MOUTH (09:00)
[2020-10-27] MEDS: FINASTERIDE 5 MG TABLET BY MOUTH (09:00)
[2020-10-27] MEDS: ROSUVASTATIN 10 MG TABLET PO (09:00)
[2020-10-27] MEDS: hydroCHLOROthiazide 25 MG TABLET PO (09:00)
[2020-10-27] MEDS: BETAMETHASONE/CLOTRIMAZOLE CR 15 GM TUBE 1 APPLIC TOPICAL (09:01)
[2020-10-27] MEDS: ENOXAPARIN 40 MG/0.4 ML SYRINGE SUB-Q (09:01)
[2020-10-27] MEDS: SILVERGEL (ELTA) 45 ML 1 APPLIC TOPICAL (09:01)
[2020-10-27] MEDS: FLUTICASONE PROPIONATE 0.05% NA SPR 16 GM BTL (*BKC) 2 SPRAY NASAL (09:02)
[2020-10-27] MEDS: ACETAMINOPHEN 325 MG TABLET 650 MG PO (09:02)
[2020-10-27] MEDS: guaiFENesin/DEXTROMETHORPHAN 10 ML UDC 5 ML PO (09:08)
[2020-10-27] MEDS: INSULIN DETEMIR 100 UNITS/ML 40 UNITS SUB-Q (09:17)
[2020-10-27 11:27] LABS: Glucose Point of Care 192 (65-105)
--- NOTE | 2020-10-27 13:29 | PM.DS ---
DS: Admitting Diagnosis Admitting Diagnosis Admitting Diagnosis: Cellulitis DS: Discharge Diagnosis Discharge Diagnosis (1) Cellulitis of lower leg: Code(s): L03.119 - Cellulitis of unspecified part of limb Status: Acute Assessment and Plan: Date of Admission 10/21/20 Date of Discharge 10/27/20 Mr. Red is a pleasant 60yo M with history of hypertension and obstructive sleep apnea who presented to the ED for evaluation of body aches, fever and left lower leg wound that was draining fluid. History and physical exam consistent with a left leg cellulitis. Venous Doppler showed no evidence of left leg DVT. He was started on IV vancomycin and imipenem for antibiotic stewardship guidelines. He was evaluated by global marketing specialist and received local wound care. He had lower extremity edema that is responded well to 1 dose of Lasix. He describes a long-standing issue with bilateral lower extremity edema and does a good job wearing his compression stockings daily. He was noted to have some asymptomatic bradycardia and his metoprolol succinate dose was decreased. Blood pressures remained stable on his home amlodipine and lisinopril with decreased dose of metoprolol. Overall his left leg cellulitis showed clinical improvement with IV antibiotic therapy outlined above and he was discharged with oral antibiotics to complete the course encouraged to follow-up with PCP for further monitoring. He is hemodynamically stable for discharge on 10/27/2020; patient and his at the bedside are comfortable with discharge planning for today. His is watching RN perform dressing change and will help patient with daily dressing changes until follow-up PCP. Patient's history and physical exam consistent with left leg cellulitis. Ultrasound shows no evidence of left leg DVT. Treated with 6 days of IV vancomycin and imipenem, discharged with oral doxycycline and levofloxacin (penicillin allergy) to complete the course. Continue elevation of the leg and local wound care including ISMAEL wrap. He usually wears his compression stockings daily. (2) Sepsis: Qualifiers: Sepsis type: sepsis due to unspecified organism Sepsis acute organ dysfunction status: without acute organ dysfunction Qualified Code(s): A41.9 - Sepsis, unspecified organism Code(s): A41.9 - Sepsis, unspecified organism Status: Acute Assessment and Plan: Secondary to above. Continue antibiotics. Blood cultures are negative. (3) Obstructive sleep apnea on CPAP: Code(s): G47.33 - Obstructive sleep apnea (adult) (pediatric); Z99.89 - Dependence on other enabling machines and devices Status: Chronic Assessment and Plan: Continue CPAP. (4) Essential hypertension: Code(s): I10 - Essential (primary) hypertension Status: Inactive Assessment and Plan: Continue home amlodipine and lisinopril. Continue metoprolol (dose was decreased due to bradycardia). (5) Hypokalemia: Code(s): E87.6 - Hypokalemia Status: Acute Assessment and Plan: K and mildly low and replaced. Mag 1.7, continue oral supplementation. Monitor labs. (6) Bradycardia: Code(s): R00.1 - Bradycardia, unspecified Status: Acute Assessment and Plan: Patient unsure if he has a history of bradycardia. He is asymptomatic. Continue metoprolol at a lower dose. (7) Insulin dependent diabetes mellitus: Status: Acute Assessment and Plan: Encouraged tight glycemic control to promote wound healing. DS: Summary Hospital Course Hospital Course: See above Time Spent with Patie
[2020-10-27 13:59] VITALS: BP 124/65; PULSE 66; RESP 19; TEMP 36.2; O2SAT 96
--- NOTE | 2020-10-27 15:24 | PC.NURSE ---
On 10/27/20, the student, [Cesar Young ], provided care and completed [employer] documentation on this patient. I have reviewed the student's documentation and agree with the findings.
== END 2020-10-27 15:15 | disposition home or self-care (01) | DRG 872 ==
LOC: ANHED 20:21 → ANH3MEDSUR 10-22 07:15
PROVIDERS: Internal Medicine; Physician Assistant; Admitting Provider Family Medicine; Emergency Provider Emergency Medicine; PCP Family Medicine; Visit Provider Physician Assistant
DX: A41.9 Sepsis, unspecified organism (principal); L03.116 Cellulitis of left lower limb; G47.33 Obstructive sleep apnea (adult) (pediatric); Z99.89 Dependence on other enabling machines and devices; I10 Essential (primary) hypertension; E87.6 Hypokalemia; R00.1 Bradycardia, unspecified; E11.9 Type 2 diabetes mellitus without complications; N40.0 Benign prostatic hyperplasia without lower urinary tract symptoms; I87.2 Venous insufficiency (chronic) (peripheral); Z96.651 Presence of right artificial knee joint; Z79.4 Long term (current) use of insulin; Z79.899 Other long term (current) drug therapy; Z86.16 Personal history of COVID-19; Z87.891 Personal history of nicotine dependence; Z88.0 Allergy status to penicillin
CPT/HCPCS: 36415; 71045; 80048; 80053; 80202; 81001; 82948; 83605; 83735; 85025; 85027; 85380; 86140; 87040; 93005; 93971; 99285; A9270; J0743; J1650; J1815; J1885; J1940; J3370; J3480; J7120

== ENCOUNTER 2023-06-11 13:37 | Outpatient (CLI) | payer OTHER, SELFPAY ==
--- NOTE | 2023-06-11 14:42 | ECG_ITS ---
Measurements Intervals [place] Rate: 75 P: 105 TN: 188 QRS: -66 QRSD: 127 T: 11 QT: 392 QTc: 438 Interpretive Statements SINUS RHYTHM MARKED LEFT AXIS DEVIATION [QRS AXIS < -30] RIGHT BUNDLE BRANCH BLOCK [120+ ms QRS DURATION, UPRIGHT V1, 40+ ms S IN I/aVL/V4/V5/V6] ABNORMAL ECG COMPARED TO ECG 10/23/2020 12:46:13 NO SIGNIFICANT DIFFERENCE Electronically Signed On 06-11-2023 15:31:42 CLINICAL RESEARCHER by Bro Hawk M.D.
[2023-06-11 15:10] LABS: Basophils Absolute Auto 0.1 K/mm3 (0.0-0.1); Basophils Percent Auto 0.8 % (0.2-1.2); Eosinophils Absolute Auto 0.1 K/mm3 (0-0.3); Eosinophils Percent Auto 0.6 % (0-4.4); Hematocrit 40.2 % (42.0-52.0); Hemoglobin 14.4 g/dL (14.0-18.0); Immature Granulocyte Absolute 0.03 K/mm3 (0.00-0.031); Immature Granulocyte Percent A 0.3 % (0-0.5); Lymphocytes Absolute Auto 1.85 K/mm3 (0.9-3.2); Lymphocytes Percent Auto 17.4 % (18.3-44.2); Mean Corpuscular HGB Conc 35.8 g/dl (32-36); Mean Platelet Volume 9.7 fl (7.4-10.4); Monocytes Absolute Auto 0.7 K/mm3 (0.1-0.6); Monocytes Percent Auto 6.9 % (2.6-8.5); Neutrophils Absolute Auto 7.9 K/mm3 (1.3-6.7); Platelet Count Result 274 k/mm3 (150-375); Red Blood Count 4.37 M/mm3 (4.6-6.20); White Blood Count 10.6 K/mm3 (4.5-10.0)
[2023-06-11 15:14] LABS: Albumin Level 4.6 g/dL (3.5-5.1)
[2023-06-11 15:18] LABS: Anion Gap 9 mmol/L (8-16); Blood Urea Nitrogen 20 mg/dL (9-20); Calcium 10.2 mg/dL (8.4-10.2); Carbon Dioxide 29 mmol/L (22-30); Chloride 98 mmol/L (98-107); Estimated Glomerular Filt Rate > 60; Glucose 92 mg/dL (65-110); Potassium 2.9 mmol/L (3.4-5.0); Sodium 136 mmol/L (137-145)
[2023-06-11 15:20] LABS: Urine Cotinine NEGATIVE
[2023-06-11 22:35] LABS: Hemoglobin A1C 4.7 % (<5.7)
== END 2023-06-11 13:38 | disposition home or self-care (01) ==
PROVIDERS: Anesthesiology; Visit Provider Orthopaedic Surgery
DX: M17.12 Unilateral primary osteoarthritis, left knee (principal); E11.9 Type 2 diabetes mellitus without complications; Z01.818 Encounter for other preprocedural examination
CPT/HCPCS: 36415; 80048; 80307; 82040; 83036; 85025; 86850; 86900; 86901; 87081; 93005